=== PATIENT | female | born 1950 | race Caucasian/White ===

== ENCOUNTER 2019-09-20 22:38 | Inpatient (IN) ==
[2019-09-20] MEDS ORDERED: Haloperidol Lactate 5 MG/ML VIAL IM PRN (23:02)
[2019-09-20] MEDS ORDERED: *HR* LORazepam 2 MG/ML VIAL IM PRN (23:02)
[2019-09-20] MEDS ORDERED: Mag Hydrox/Al Hydrox/Simeth 30 ML UDC PO PRN (23:02)
[2019-09-20] MEDS ORDERED: MOM Conc 10 ML UD.LIQ PO PRN (23:02)
[2019-09-20] MEDS ORDERED: *HR* LORazepam 1 MG TABLET PO PRN (23:02)
[2019-09-20] MEDS: Acetaminophen 325 MG TABLET PO PRN (23:51)
[2019-09-20] MEDS: traZODone 50 MG TABLET PO PRN (23:51)
[2019-09-21] MEDS: FLUoxetine 20 MG CAPSULE PO SCH (11:25)
[2019-09-21] MEDS ORDERED: Dextrose Gel 15 GM/37.5 ML TUBE PO PRN (12:14)
[2019-09-21] MEDS: traZODone 50 MG TABLET PO PRN (21:16)
[2019-09-21] MEDS: hydrOXYzine pamoate 25 MG CAPSULE PO PRN (21:16)
[2019-09-21] MEDS: Mirtazapine 15 MG TABLET PO SCH (21:16)
[2019-09-21] MEDS: Metoprolol XL (24 HR) Succ 50 MG TAB.ER.24H PO SCH (21:16)
[2019-09-22] MEDS: FLUoxetine 20 MG CAPSULE PO SCH (10:01)
[2019-09-22] MEDS: hydrOXYzine pamoate 25 MG CAPSULE PO PRN ×2 (16:29→21:23)
[2019-09-22] MEDS: traZODone 50 MG TABLET PO PRN (21:23)
[2019-09-22] MEDS: Mirtazapine 15 MG TABLET PO SCH (21:23)
[2019-09-22] MEDS: Metoprolol XL (24 HR) Succ 50 MG TAB.ER.24H PO SCH (21:23)
[2019-09-23] MEDS: FLUoxetine 20 MG CAPSULE PO SCH (08:47)
[2019-09-23 14:43] LABS: Basophils # 0.1 K/mcL (0.0-0.2); Basophils % 0.4 %; Eosinophils # 0.2 K/mcL (0.0-0.6); Eosinophils % 1.6 %; Hemoglobin 14.2 g/dL (11.5-15.4); Immature Granulocytes % 0.6 % (0-4); Lymphocytes # 3.2 K/mcL (0.6-4.6); Lymphocytes % 25.8 %; Mean Corpuscular Hemoglobin 30.1 pg (28.0-33.3); Mean Corpuscular Volume 91.3 fL (83.0-100.0); Mean Platelet Volume 12.1 fL (9.4-12.4); Monocytes # 0.5 K/mcL (0.0-1.3); Neutrophils # 8.4 K/mcL (1.6-8.9); Platelet Count 292 K/mcL (140-400); Red Blood Count 4.71 M/mcL (3.82-4.97); Red Cell Distribution Width 13.5 % (11.5-14.5); Segmented Neutrophils % 67.6 %; White Blood Count 12.4 K/mcL (4.3-11.1)
[2019-09-23 15:23] LABS: Alanine Aminotransferase 21 Units/L (7-52); Albumin/Globulin Ratio 1.3 (1.1-2.2); Alkaline Phosphatase 86 Units/L (34-104); Aspartate Amino Transferase 16 Units/L (13-39); BUN/Creatinine Ratio 26 (6-26); Bilirubin,Total 0.5 mg/dL (0.3-1.0); Blood Urea Nitrogen 23 mg/dL (8-23); Calcium 9.8 mg/dL (8.6-10.3); Carbon Dioxide 26 mEq/L (23-29); Chloride 99 mEq/L (98-107); Glucose 236 mg/dL (70-105); Osmolality,Calculated 289 (280-300); Potassium 4.4 mEq/L (3.5-5.1); Sodium 134 mEq/L (136-145); eGFR For African Americans > 60 (> 60); eGFR For Non-African Americans > 60 (> 60)
[2019-09-23 15:56] LABS: Estimated Average Glucose 171 mg/dl
[2019-09-23] MEDS: Mirtazapine 15 MG TABLET PO SCH (21:23)
[2019-09-23] MEDS: Metoprolol XL (24 HR) Succ 50 MG TAB.ER.24H PO SCH (21:23)
[2019-09-24] MEDS: FLUoxetine 20 MG CAPSULE PO SCH (08:39)
[2019-09-24] MEDS: Metoprolol XL (24 HR) Succ 50 MG TAB.ER.24H PO SCH (20:40)
[2019-09-24] MEDS: hydrOXYzine pamoate 25 MG CAPSULE PO PRN (20:41)
[2019-09-24] MEDS: Mirtazapine 15 MG TABLET PO SCH (20:42)
[2019-09-24] MEDS: Acetaminophen 325 MG TABLET PO PRN (20:42)
[2019-09-24] MEDS: traZODone 50 MG TABLET PO PRN (20:42)
[2019-09-25] MEDS: FLUoxetine 20 MG CAPSULE PO SCH (09:03)
[2019-09-25] MEDS ORDERED: Dextrose Gel 15 GM/37.5 ML TUBE PO PRN ×2 (09:39)
[2019-09-25] MEDS ORDERED: *HR* Dextrose 50 % in Water (Syg) 50 ML SYRINGE IVP PRN (09:39)
[2019-09-25] MEDS ORDERED: D5% in Water 1,000 ML IVC PRN (09:39)
[2019-09-25] MEDS: Insulin LISPRO 300 UNITS/3 ML VIAL SQ SCH ×2 (12:07→16:42)
[2019-09-25] MEDS: *HR* Metformin 500 MG TABLET PO SCH ×2 (13:06→17:53)
[2019-09-25] MEDS: Mirtazapine 15 MG TABLET PO SCH (20:09)
[2019-09-25] MEDS: Acetaminophen 325 MG TABLET PO PRN (20:10)
[2019-09-25] MEDS: traZODone 50 MG TABLET PO PRN (20:10)
[2019-09-25] MEDS: hydrOXYzine pamoate 25 MG CAPSULE PO PRN (20:10)
[2019-09-25] MEDS: Metoprolol XL (24 HR) Succ 50 MG TAB.ER.24H PO SCH (20:10)
[2019-09-26] MEDS: FLUoxetine 20 MG CAPSULE PO SCH (08:55)
[2019-09-26] MEDS: *HR* Metformin 500 MG TABLET PO SCH ×2 (08:55→17:21)
[2019-09-26] MEDS: Insulin LISPRO 300 UNITS/3 ML VIAL SQ SCH ×3 (08:57→16:41)
[2019-09-26] MEDS: Mirtazapine 15 MG TABLET PO SCH (20:18)
[2019-09-26] MEDS: hydrOXYzine pamoate 25 MG CAPSULE PO PRN (20:19)
[2019-09-26] MEDS: traZODone 50 MG TABLET PO PRN (20:19)
[2019-09-26] MEDS: Metoprolol XL (24 HR) Succ 50 MG TAB.ER.24H PO SCH (20:19)
[2019-09-27] MEDS: FLUoxetine 20 MG CAPSULE PO SCH (08:22)
[2019-09-27] MEDS: Insulin LISPRO 300 UNITS/3 ML VIAL SQ SCH (08:22)
[2019-09-27] MEDS: *HR* Metformin 500 MG TABLET PO SCH (08:22)
[2019-09-27 08:43] VITALS: BP 119/69
== END 2019-09-27 10:00 | disposition home or self-care (01) | DRG 885 ==
LOC: SUATTDRO 22:38 → 1ANU 22:38
PROVIDERS: ADMIT Psychiatry & Neurology Psychiatry; ATTEND Psychiatry & Neurology Psychiatry